=== PATIENT | female | born 1995 | race Hispanic/Latino ===

== ENCOUNTER 2020-07-02 10:47 | Emergency (ER) | payer MEDICAID ==
[2020-07-02 11:03] VITALS: BP 111/62
[2020-07-02] MEDS ORDERED: ACETAMINOPHEN 325 MG TAB PO ONE (11:34)
[2020-07-02] MEDS ORDERED: METOCLOPRAMIDE 10 MG TAB PO ONE (11:34)
--- NOTE | 2020-07-02 12:04 | Emergency Department Report ---
ED HPI - General Chief complaint: Vaginal Bleeding Stated complaint: 8WEEKS PREG CRAMPING SPOTTING Time Seen by Provider: 07/02/20 11:28 Source: patient Mode of arrival: Ambulatory Limitations: No Limitations - History of Present Illness Initial comments: Patient is a 24-year-old female presents emergency room with complaints of lower abdominal cramping that began this morning when she woke up. She states that she also noticed vaginal spotting that began this morning as well. she has nausea. She states she is approximately 8 weeks . She states her last menstrual cycle was April 28, 2020. She states that she had a test performed by the resource [facility] but has not yet had an ultrasound. She states that she has an appointment with an MANUFACTURING MAINTENANCE TECHNICIAN on July 20. She denies any vomiting, diarrhea, fever, dysuria, vaginal discharge. She has a past medical history of childhood seizures. No allergies to medications. A/P: 2/A: 0 - Related Data Previous Rx's Medication Instructions Recorded Last Taken Type Metoclopramide [Reglan] 10 mg PO Q8HR PRN #10 tab 07/02/20 Unknown Rx ED Review of Systems ROS: Stated complaint: 8WEEKS PREG CRAMPING SPOTTING Other details as noted in HPI Comment: All other systems reviewed and negative ED Past Medical Hx - Past Medical History Previous Medical History?: No - Surgical History Past Surgical History?: Yes Additional Surgical History: c section - Social History Smoking Status: Never Smoker Substance Use Type: None - Medications Home Medications: Home Medications Medication Instructions Recorded Confirmed Last Taken Type Metoclopramide [Reglan] 10 mg PO Q8HR PRN #10 tab 07/02/20 Unknown Rx ED Physical Exam - General Limitations: No Limitations General appearance: alert, in no apparent distress - Head Head exam: Present: atraumatic, normocephalic - Eye Eye exam: Present: normal appearance - ENT ENT exam: Present: mucous membranes moist - Respiratory Respiratory exam: Present: normal lung sounds bilaterally. Absent: respiratory distress, wheezes, rales, rhonchi, stridor, chest wall tenderness, accessory muscle use, decreased breath sounds, prolonged expiratory - Cardiovascular Cardiovascular Exam: Present: regular rate, normal rhythm, normal heart sounds. Absent: systolic murmur, diastolic murmur, rubs, gallop - GI/Abdominal GI/Abdominal exam: Present: soft, normal bowel sounds. Absent: distended, tenderness, guarding, rebound, rigid - Neurological Exam Neurological exam: Present: alert, oriented X3 - Psychiatric Psychiatric exam: Present: normal affect, normal mood - Skin Skin exam: Present: warm, dry, intact ED Course Vital Signs 07/02/20 07/02/20 10:55 12:11 Temperature 97.9 F Pulse Rate 72 Respiratory 18 18 Rate Blood Pressure 111/62 O2 Sat by Pulse 98 Oximetry ED Medical Decision Making - Lab Data Result diagrams: 07/02/20 11:48 07/02/20 11:48 Lab Results 07/02/20 07/02/20 07/02/20 Range/Units 11:26 11:48 11:48 WBC 5.1 (4.5-11.0) K/mm3 RBC 4.33 (3.65-5.03) M/mm3 Hgb 13.8 (10.1-14.3) gm/dl Hct 40.0 (30.3-42.9) % MCV 92 (79-97) fl MCH 32 (28-32) pg MCHC 35 H (30-34) % RDW 13.3 (13.2-15.2) % Plt Count 242 (140-440) K/mm3 Lymph % (Auto) 36.9 H (13.4-35.0) % [place] % (Auto) 7.6 H (0.0-7.3) % Eos % (Auto) 4.0 (0.0-4.3) % Baso % (Auto) 1.0 (0.0-1.8) % Lymph # 1.9 (1.2-5.4) K/mm3 [place] # 0.4 (0.0-0.8) K/mm3 Eos # 0.2 (0.0-0.4) K/mm3 Baso # 0.1 (0.0-0.1) K/mm3 Seg Neutrophils % 50.5 (40.0-70.0) % Seg Neutrophils # 2.6 (1.8-7.7) K/mm3 Sodium 138 (137-145) mmol/L Potassium 4.0 (3.6-5.0) mmol/L Chloride 101.2 (98-107) mmol/L Carbon Dioxide 24 (22-30) mmol/L Anion Gap 17 mmol/L BUN 11 (7-17) mg/dL Creatinine 0.7 (0.6-1.2) mg/dL Estimated GFR > 60 ml/min BUN/Creatinine Ratio 16 % Glucose 122 H (65-100) mg/dL Calcium 9.3 (8.4-10.2) mg/dL Total Bilirubin 0.50 (0.1-1.2) mg/dL AST 17 (5-40) units/L ALT 18 (7-56) units/L Alkaline Phosphatase 51 (35-129) units/L Total Protein 6.4 (6.3-8.2) g/dL Albumin 4.0 (3.9-5) g/dL Albumin/Globulin Ratio 1.7 % HCG, Quant (0-4) mIU/mL Urine Color (Yellow) Urine Turbidity (Clear) Urine pH (5.0-7.0) Ur Specific [place] (1.003-1.030) Urine Protein (Negative) mg/dL Urine Glucose (UA) (Negative) mg/dL Urine Ketones (Negative) mg/dL Urine Blood (Negative) Urine Nitrite (Negative) Urine Bilirubin (Negative) Urine Urobilinogen (<2.0) mg/dL Ur Leukocyte Esterase (Negative) Urine WBC (Auto) (0.0-6.0) /HPF Urine RBC (Auto) (0.0-6.0) /HPF U Epithel Cells (Auto) (0-13.0) /HPF Urine Bacteria (Auto) (Negative) /HPF Urine Mucus /HPF Blood Type O POSITIVE 07/02/20 07/02/20 Range/Units 11:48 Unknown WBC (4.5-11.0) K/mm3 RBC (3.65-5.03) M/mm3 Hgb (10.1-14.3) gm/dl Hct (30.3-42.9) % MCV (79-97) fl MCH (28-32) pg MCHC (30-34) % RDW (13.2-15.2) % Plt Count (140-440) K/mm3 Lymph % (Auto) (13.4-35.0) % [place] % (Auto) (0.0-7.3) % Eos % (Auto) (0.0-4.3) % Baso % (Auto) (0.0-1.8) % Lymph # (1.2-5.4) K/mm3 [place] # (0.0-0.8) K/mm3 Eos # (0.0-0.4) K/mm3 Baso # (0.0-0.1) K/mm3 Seg Neutrophils % (40.0-70.0) % Seg Neutrophils # (1.8-7.7) K/mm3 Sodium (137-145) mmol/L Potassium (3.6-5.0) mmol/L Chloride (98-107) mmol/L Carbon Dioxide (22-30) mmol/L Anion Gap mmol/L BUN (7-17) mg/dL Creatinine (0.6-1.2) mg/dL Estimated GFR ml/min BUN/Creatinine Ratio % Glucose (65-100) mg/dL Calcium (8.4-10.2) mg/dL Total Bilirubin (0.1-1.2) mg/dL AST (5-40) units/L ALT (7-56) units/L Alkaline Phosphatase (35-129) units/L Total Protein (6.3-8.2) g/dL Albumin (3.9-5) g/dL Albumin/Globulin Ratio % HCG, Quant 1434 H (0-4) mIU/mL Urine Color Yellow (Yellow) Urine Turbidity Hazy (Clear) Urine pH 7.0 (5.0-7.0) Ur Specific [place] 1.004 (1.003-1.030) Urine Protein <15 mg/dl (Negative) mg/dL Urine Glucose (UA) Neg (Negative) mg/dL Urine Ketones Neg (Negative) mg/dL Urine Blood Lg (Negative) Urine Nitrite Neg (Negative) Urine Bilirubin Neg (Negative) Urine Urobilinogen < 2.0 (<2.0) mg/dL Ur Leukocyte Esterase Neg (Negative) Urine WBC (Auto) 5.0 (0.0-6.0) /HPF Urine RBC (Auto) 6.0 (0.0-6.0) /HPF U Epithel Cells (Auto) 10.0 (0-13.0) /HPF Urine Bacteria (Auto) 1+ (Negative) /HPF Urine Mucus Few /HPF Blood Type - Radiology Data Radiology results: report reviewed US OB <= 14 weeks fetus INDICATION / CLINICAL INFORMATION: , spotting, cramping. COMPARISON: None available. FINDINGS: Transabdominal imaging was performed. There is an intrauterine gestational sac. No yolk sac or pole is seen. Gestational sac measures 7.6 mm (5 weeks 4 days). No adnexal lesions are seen. Left ovary is not visualized. There is a 3.3 cm right ovarian cyst. No free fluid. IMPRESSION: 1. Intrauterine gestational sac without yolk sac or pole. This could be due to very early . Correlation with serial beta hCG levels and short-term sonographic follow-up is recommended. Signer Name: John Garcia MD Signed: 07/02/2020 3:27 PM Workstation Name: [id number] Transcribed By: ANTHONY Dictated By: John Garcia MD Electronically Authenticated By: John Garcia MD Signed Date/Time: 07/02/201526 DD/ 25 TD/TT: - Medical Decision Making Patient is a 24-year-old female presents emergency room with complaints of lower abdominal cramping that began this morning when she woke up. She states that she also noticed vaginal spotting that began this morning as well. she has nausea. She states she is approximately 8 weeks . She states her last menstrual cycle was April 28, 2020. She states that she had a test performed by the resource center but has not yet had an ultrasound. She states that she has an appointment with an MANUFACTURING MAINTENANCE TECHNICIAN on July 20. She denies any vomiting, diarrhea, fever, dysuria, vaginal discharge. She has a past medical history of childhood seizures. No allergies to medications. A/P: 2/A:0. vitals are normal. no abd ttp on exam. labs are normal, hcg quant 1434. US OB: 1. Intrauterine gestational sac without yolk sac or pole. This could be due to very early . Correlation with serial beta hCG levels and short-term sonographic follow-up is recommended. UA is WNL. discussed all results with pt, pt given US results, discussed need for follow up and repeat hcg, discussed threatened miscarriage. pt given prescription for reglan. advised pt Please take medication as prescribed as needed. May take Tylenol as needed for discomfort. Please take a vitamin [id number]. You need to have a repeat hCG quant in 2 days. Today your hCG quant is 1434. You may have this done at [facility]UFACT[facility]ING MAINTENANCE TECHNICIAN, primary care doctor, or return to emergency room. Return to emergency room for any new or worsening symptoms. - Differential Diagnosis IUP, ectopic, hemorrhagic cyst, subchorionic hemorrhage, fibroids, UTI Critical care attestation.: If time is entered above; I have spent that time in minutes in the direct care of this critically ill patient, excluding procedure time. ED Disposition Clinical Impression: Threatened miscarriage, Suprapubic cramping, Nausea, Vaginal spotting Disposition: DC- TO HOME OR SELFCARE Is pt being admited?: No Does the pt Need Aspirin: No Condition: Stable Instructions: Threatened Miscarriage (ED) Additional Instructions: Please take medication as prescribed as needed. May take Tylenol as needed for discomfort. Please take a vitamin [id number]. You need to have a repeat hCG quant in 2 days. Today your hCG quant is 1434. You may have this done at MANUFACTURING MAINTENANCE TECHNICIAN, primary care doctor, or return to emergency room. Return to emergency room for any new or worsening symptoms. Prescriptions: Metoclopramide [Reglan] 10 mg PO Q8HR PRN #10 tab PRN Reason: Nausea And Vomiting Referrals: JULIANN VITAL MD [Primary Care Provider] - 2-3 Days your, e mail system administrator [Other] - 2-3 Days Time of Disposition: 15:48 Print Language: [place] ISLAND[place]
[2020-07-02 12:10] LABS: Basophils # (Auto) 0.1 K/mm3 (0.0-0.1); Eosinophils # (Auto) 0.2 K/mm3 (0.0-0.4); Hemoglobin 13.8 gm/dl (10.1-14.3); Lymphocytes # (Auto) 1.9 K/mm3 (1.2-5.4); Lymphocytes % (Auto) 36.9 % (13.4-35.0); Mean Corpuscular HGB Conc 35 % (30-34); Mean Corpuscular Volume 92 fl (79-97); Monocytes # (Auto) 0.4 K/mm3 (0.0-0.8); Monocytes % (Auto) 7.6 % (0.0-7.3); Platelet Count 242 K/mm3 (140-440); Red Blood Count 4.33 M/mm3 (3.65-5.03); Red Cell Distribution Width 13.3 % (13.2-15.2)
[2020-07-02 12:41] LABS: Alanine Aminotransferase 18 units/L (7-56); Blood Urea Nitrogen 11 mg/dL (7-17); Calcium 9.3 mg/dL (8.4-10.2); Hemolysis Index 9
[2020-07-02 12:43] LABS: BUN/Creatinine Ratio 16
[2020-07-02 13:36] LABS: Bacteria,Urine 1+ /HPF (Negative); Bilirubin,Urine NEG (Negative); Blood,Urine LG (Negative); Color,Urine Yellow (Yellow); Mucus,Urine FEW /HPF; Protein,Urine <15 mg/dL mg/dL (Negative); Urobilinogen,Urine < 2.0 mg/dL (<2.0)
--- NOTE | 2020-07-02 15:31 | Ultrasound Report ---
US OB <= 14 weeks fetus INDICATION / CLINICAL INFORMATION: , spotting, cramping. COMPARISON: None available. FINDINGS: Transabdominal imaging was performed. There is an intrauterine gestational sac. No yolk sac or pole is seen. Gestational sac measures 7.6 mm (5 weeks 4 days). No adnexal lesions are seen. Left ovary is not visualized. There is a 3.3 cm right ovarian cyst. No free fluid. IMPRESSION: 1. Intrauterine gestational sac without yolk sac or pole. This could be due to very early pregn jelena. Correlation with serial beta hCG levels and short-term sonographic follow-up is recommended. Signer Name: John Garcia MD Signed: 07/02/2020 3:27 PM Workstation Name: [id number]
== END 2020-07-02 16:08 | disposition home or self-care (01) ==
LOC: ED 10:47
DX: O26.851 Spotting complicating pregnancy, first trimester (principal); Z3A.08 8 weeks gestation of pregnancy; Z79.899 Other long term (current) drug therapy
CPT/HCPCS: 36415; 76801; 80053; 81001; 84702; 85025; 86900; 86901